=== PATIENT | female | born 1965 | race Caucasian/White ===

== ENCOUNTER → 2017-05-19 | Outpatient (CLI) | payer BC ==
--- NOTE | 2017-05-19 13:59 | MR ---
EXAMINATION TYPE: MR damon wo con DATE OF EXAM: 05/19/2017 1:07 PM COMPARISON: NONE HISTORY: Low back pain, Pain in thoracic spine Multiplanar MultiSpin echo imaging of the thoracic spine was performed. Disc spaces: Mild scattered degenerative disc disease. Mild ventral spondylosis. No evidence for balbina iation or protrusion. Spinal canal: No evidence for canal stenosis. No intrinsic or extrinsic lesion. Thoracic spinal cord: Thoracic spinal cord is of normal caliber and signal. Paraspinal soft tissues: No evidence for paraspinal mass. No destructive lesions seen. Vertebral segments: No evidence for fracture or bony lesion. IMPRESSION: Negative study 1. Mild multilevel degenerative disc disease without evidence for herniation or central stenosis. EXAMINATION TYPE: MR marisol felix con DATE OF EXAM: 05/19/2017 1:07 PM COMPARISON: NONE HISTORY: Low back pain, Pain in thoracic spine Multiplanar, MultiSpin echo imaging of the lumbar spine was performed. L1-L2: Normal disc appearance without desiccation. No herniation, protrusion or disc bulging. No ca nal stenosis is present. Foramina are patent bilaterally. L2-L3: Normal disc appearance without desiccation. No herniation, protrusion or disc bulging. No ca nal stenosis is present. Foramina are patent bilaterally. L3-L4: Mild Disc desiccation with mild posterocentral disc bulge. No evidence for herniation or protr usion. No central stenosis or foraminal encroachment. L4-L5: Normal disc appearance without desiccation. No herniation, protrusion or disc bulging. No ca nal stenosis is present. Foramina are patent bilaterally. L5-S1: Mild disc desiccation. Posterocentral disc protrusion. Mild effacement ventral thecal sac. No evidence for lateral recess stenosis or central stenosis. Foramina are patent bilaterally. Facet join t arthropathy noted. Lumbar segments are intact. No paraspinal masses are identified. Conus medullaris has a normal appe arance. IMPRESSION: 1. Mild disc desiccation. 2. Mild posterocentral disc protrusion at L5-S1.
== END | disposition home or self-care (01) ==
LOC: RADMRIMAIN 12:11
PROVIDERS: ATTEND Psychiatry & Neurology Neurology
DX: M51.27 Other intervertebral disc displacement, lumbosacral region (principal)
CPT/HCPCS: 72146; 72148

== ENCOUNTER → 2017-06-02 | Outpatient (CLI) | payer BC ==
--- NOTE | 2017-06-04 07:34 | MM ---
Reason for exam: screening (asymptomatic). Physical Findings: A clinical breast exam by your physician is recommended on an annual basis and results should be correlated with mammographic findings. MG Screening Mammo w CAD Bilateral CC and MLO view(s) were taken. No prior studies available for comparison. The breast tissue is heterogeneously dense. This may lower the sensitivity of mammography. There is a 6mm mass in the right breast upper outer quadrant posterior depth possibly intramammary lymph node. ASSESSMENT: Incomplete: need additional imaging evaluation, BI-RAD 0 RECOMMENDATION: Special view mammogram of the right breast. If lesion persists on supplemental views, image directed ultrasound is recommended. [facility] will attempt to contact patient to return for supplemental views and ultrasound if indicated.
== END | disposition home or self-care (01) ==
LOC: RADMAMWWP 13:24
PROVIDERS: ATTEND Internal Medicine
DX: Z12.31 Encounter for screening mammogram for malignant neoplasm of breast (principal)
CPT/HCPCS: 77067

== ENCOUNTER → 2017-06-23 | Outpatient (CLI) | payer BC ==
--- NOTE | 2017-06-23 14:57 | MM ---
Reason for exam: additional evaluation requested from abnormal screening. Last mammogram was performed 1 month ago. History: Patient had first child at age 30. Taking hormonal contraceptives beginning at age 14. Physical Findings: Nurse did not find any significant physical abnormalities on exam. MG Work Up Mamm w CAD RT Spot compression CC, spot compression MLO, and LM view(s) were taken of the right breast. Prior study comparison: June 02, 2017, bilateral MG screening mammo w CAD. The breast tissue is heterogeneously dense. This may lower the sensitivity of mammography. The right upper outer quadrant subcentimeter mass persists on spot views. Ultrasound will be performed. These results were verbally communicated with the patient and result sheet given to the patient on 06/23/17. ASSESSMENT: Incomplete: need additional imaging evaluation, BI-RAD 0 RECOMMENDATION: Ultrasound of the right breast. (upper outer quadrant)
--- NOTE | 2017-06-23 14:58 | USB ---
Reason for exam: additional evaluation requested from abnormal screening. History: Patient had first child at age 30. Taking hormonal contraceptives beginning at age 14. US Breast Workup Limited RT Right breast ultrasound demonstrates a 0.3 x 1.0 x 0.1cm oval, hypoechoic lesion at 11 o'clock likely duct ectasia and duct ectasia at the posterior nipple. Follow up in 6 months for right upper outer quadrant focal asymmetry. These results were verbally communicated with the patient and result sheet given to the patient on 06/23/17. ASSESSMENT: Probably benign, BI-RAD 3 RECOMMENDATION: Follow-up diagnostic mammogram and ultrasound of the right breast in 6 months.
== END | disposition home or self-care (01) ==
LOC: RADMAMWWP 13:21
PROVIDERS: ATTEND Internal Medicine
DX: R92.8 Other abnormal and inconclusive findings on diagnostic imaging of breast (principal)
CPT/HCPCS: 77065